=== PATIENT | male | born 1995 | race Caucasian/White ===

== ENCOUNTER 2017-04-25 11:18 | Emergency (ER) | payer BC ==
[2017-04-25 11:54] VITALS: BP 145/76
[2017-04-25] MEDS ORDERED: Ibuprofen TAB* 600 MG PO ONE (12:46)
--- NOTE | 2017-04-25 12:46 | UC ---
Headache HPI - HPI Summary HPI Summary: headache behind left eye began today---dx with mono 4 days ago had had sx beginning [place]-- - History Of Current Complaint Chief Complaint: UCHeadajeannette Stated Complaint: PAIN BEHIND EYES Time Seen by Provider: 04/25/17 12:33 Hx Obtained From: Patient, Family/Biology Tutor Onset/Duration: Sudden Onset, Lasting Days - 1, Still Present Onset Of Symptoms: Sudden Initially Headache Was: Severe - 8--not the worst headaches of his life Currently Pain Is: Current Pain Scale(0-10)= - 8 Pain Intensity: 8 Pain Scale Used: 0-10 Numeric Timing: Constant Character: Sharp, Pressure Location of Headache: Other: - behind left ear and left side of face Aggravating Factor: Nothing Allevating Factors: Nothing Associated Signs And Symptoms: Positive: Negative - Allergies/Home Medications Allergies/Adverse Reactions: Allergies Allergy/AdvReac Type Severity Reaction Status Date / Time No Known Allergies Allergy Verified 04/25/17 11:55 PMH/Surg Hx/FS Hx/Imm Hx Previously Healthy: No - Current Dx of [place] - Surgical History Surgical History: None - Family History Known Family History: Positive: None - Social History Occupation: Student Lives: With Family Alcohol Use: Occasionally Substance Use Type: None Smoking Status (MU): Never Smoked Tobacco - Immunization History Vaccination Up to Date: Yes Review of Systems Constitutional: Fever, Chills, Fatigue Skin: Negative Eyes: Negative ENT: Negative Respiratory: Negative Cardiovascular: Negative Gastrointestinal: Negative Genitourinary: Negative Motor: Negative Neurovascular: Negative Musculoskeletal: Negative Neurological: Headache Psychological: Negative All Other Systems Reviewed And Are Negative: Yes Physical Exam Triage Information Reviewed: Yes Appearance: Well-Appearing, No Pain Distress, Well-Nourished Vital Signs: Initial Vital Signs Temp 99.1 F 04/25/17 11:46 Pulse 65 04/25/17 11:46 Resp 20 04/25/17 11:46 BP 145/76 04/25/17 11:46 Pulse Ox 100 04/25/17 11:46 Vital Signs Reviewed: Yes Eye Exam: Normal Eyes: Positive: Conjunctiva Clear, Other: - Eomi, Perrla, Fundascopic examination wnl ENT Exam: Normal ENT: Positive: Normal ENT inspection, Hearing grossly normal, Pharynx normal, TMs normal. Negative: Nasal congestion, Nasal drainage, Tonsillar swelling, Tonsillar exudate, Trismus, Muffled/hoarse voice Dental Exam: Normal Neck exam: Normal Neck: Positive: Supple, Nontender, Enlarged Nodes @ - bilateral anterior cervical Respiratory Exam: Normal Respiratory: Positive: Chest non-tender, Lungs clear, Normal breath sounds, No respiratory distress, No accessory muscle use Cardiovascular Exam: Normal Cardiovascular: Positive: RRR, No Murmur, Pulses Normal, Brisk Capillary Refill Musculoskeletal Exam: Normal Musculoskeletal: Positive: Strength Intact, ROM Intact, No Edema Neurological Exam: Normal Neurological: Positive: Alert, Muscle Tone Normal Psychological Exam: Normal Psychological: Positive: Normal Response To Family Skin Exam: Normal Diagnostics - Radiology No standard instances Xray Interpretation: Positive (See Comments) - parasinuisitis Radiology Interpretation Completed By: Radiologist Headache Course/Dx - Course Course Of Treatment: flonase, ceftin, ibuprofen, increase fluids, rest follow with PCP - Differential Dx/Diagnosis Differential Diagnosis/HQI/PQRI: Migraine, Sinus Headache, Subarachnoid Hemorrhage, Temporal Arteritis, Tension Headache, Viral Syndrome Provider Diagnoses: Acute Sinusitis, Hypertension with history r/t to acute issue at visit Discharge - Discharge Plan Condition: Stable Disposition: HOME Prescriptions: Cefuroxime Axetil [Ceftin 250 MG] 250 mg PO BID #20 tab Fluticasone NASAL SPRAY 50MCG* [Flonase NASAL SPRAY 50MCG*] 2 spray BOTH NARES DAILY #1 btl Patient Education Materials: Sinusitis (ED), How to Use Nasal [place]ell (ED) Referrals: Hiram Garcia DO [Primary Care Provider] - If Needed
--- NOTE | 2017-04-25 13:31 | RAD ---
INDICATION: Headaches COMPARISON: None TECHNIQUE: Noncontrast axial source images were acquired from the skull base to the vertex. FINDINGS: Ventricles/sulci: The ventricles and cisterns are normal in size and configuration for age. Brain parenchyma: There is no focal parenchymal finding, evidence of intracranial mass, or intracranial mass effect. Intracranial hemorrhage:None. Extra-axial spaces: There are no abnormal extra axial fluid collections or evidence of extra-axial mass. Calvarium: There is no calvarial fracture or other calvarial abnormality. Scalp: There is no evidence of scalp or extracalvarial soft tissue abnormality. Paranasal sinuses/mastoid: There is extensive mucosal thickening involving the paranasal sinuses bilaterally. Other: None. IMPRESSION: Pansinusitis. No acute intracranial findings.
== END 2017-04-25 14:02 | disposition home or self-care (01) ==
LOC: UCCORT 11:18
DX: J01.90 Acute sinusitis, unspecified (principal); I10 Essential (primary) hypertension
CPT/HCPCS: 70450; 99212; G0463